=== PATIENT | female | born 1970 | race Caucasian/White ===

== ENCOUNTER → 2023-09-21 | Outpatient (CLI) | payer BC, SELFPAY ==
[2023-09-21 12:52] LABS: Absolute Lymphocyte Count 1.98 X10^3/uL (0.83-4.51); Absolute Neutrophil Count 4.5 X10^3/uL (2.0-7.7); Basophil# 0.09 X10^3/uL; Basophil% 1.2 % (0-1); Eosinophil# 0.19 X10^3/uL; Eosinophils% 2.6 % (0-5); Hematocrit 42.4 % (37-47); Hemoglobin 13.5 g/dL (12.0-15.0); Lymphocyte # 1.98 X10^3/ul (0.83-4.51); Lymphocyte % 27.4 % (19-41); Mean Corp Hgb Conc 31.8 g/dL (32-36); Mean Corpuscular Hgb 29.4 pg (27.0-32.0); Mean Corpuscular Volume 92.4 fL (81-99); Mean Platelet Vol. 9.8 fl (6.2-12.0); Monocyte# 0.48 X10^3/uL; Monocyte% 6.6 % (0-10); NRBC Flagged by Analyzer 0 % (0-5); Neutrophil # 4.46 X10^3/uL (2.7-7.7); Neutrophil % 61.8 % (47-70); Platelet Count 377 K/mm3 (150-450); RBC Distribution Width CV 12.4 % (11.6-14.6); RBC Distribution Width SD 42.3 fl (35.1-43.9); Red Blood Count 4.59 M/mm3 (4.2-5.4); White Blood Count 7.2 K/mm3 (4.4-11.0)
[2023-09-21 13:26] LABS: AST(SGOT) 15 U/L (15-37); Alanine Aminotransfer ALT/SGPT 28 U/L (13-56); Albumin, Serum 3.9 g/dL (3.2-5.0); Alkaline Phosphatase 103 U/L (45-117); Anion Gap 1 (5-15); BUN 11 mg/dL (7-18); BUN/Creat Ratio 14.2 RATIO (10-20); Calcium,Total 9.6 mg/dL (8.5-10.1); Chloride 105 mmol/L (98-107); Cholesterol 193 mg/dL (200); Creatinine, Serum 0.77 mg/dL (0.55-1.02); EST Glomerular Filtration Rate 84 mL/min (>60); Est Glom Filt Rate - Afr Amer 101 mL/min (>60); Globulin 3.9 g/dL (2.2-4.2); Glucose 85 mg/dL (74-106); High Density Lipoprotein 84 mg/dL; Potassium 4.1 mmol/L (3.5-5.1); Protein, Total 7.8 g/dL (6.4-8.2); Sodium Level 136 mmol/L (136-145); Triglycerides 251 mg/dL; Very Low Density Lipoprotein 50 mg/dL (5-40)
== END | disposition home or self-care (01) ==
PROVIDERS: PCP Internal Medicine; Referring Provider Internal Medicine; Visit Provider Internal Medicine
DX: Z00.00 Encounter for general adult medical examination without abnormal findings (principal)
CPT/HCPCS: 36415; 80053; 80061; 85025

== ENCOUNTER 2024-05-06 13:18 | Emergency (ER) | payer BC, SELFPAY ==
[2024-05-06 13:18] VITALS: BP 131/87; PULSE 88; RESP 16; TEMP 36.2; O2SAT 96; BMI 28.5
--- NOTE | 2024-05-06 16:12 | EX.ED.UPPERE ---
HPI History of Present Illness HPI Narrative: Left small finger laceration while doing yard work. Occurred about 3 hours ago. Unsure of last tetanus. [id number]. Chief Complaint: Laceration Informant: patient Occured/Mechanism Mechanism/Context: Yes injury Onset/Context/Timing Onset: Today and Hours Context: Sudden Onset Timing: Continuous Quality of Pain: Sharp Current Severity: Mild Maximum Severity: Mild Associated Symptoms Associated Symptoms: Negative for Weakness or Loss of Funtion Narrative Narrative: 54-year-old female doing yard work including cut her left small finger on the distal ulnar side with Hand-held nitza. Unsure of her last tetanus shot. Tetanus Immunization: Unknown Prior similar symptoms: No Recent Illness/Hospitalization: No PFSH PFSH Medical History Anxiety and depression Preventative health care GERD (gastroesophageal reflux disease) Anxiety Depression Cataract Breast lump Bulging disc Home Medications ?Medication ?Instructions ?Recorded ?Last Taken ?Type calcium carbonate (Tums) 200 mg PO BID PRN 09/21/23 Unknown History calcium polycarbophil 625 mg 1,250 mg PO DAILY 09/21/23 Unknown History tablet (FiberCon) multivitamin 1 tab PO DAILY 09/21/23 Unknown History pantoprazole 40 mg tablet,delayed mg PO 09/21/23 Unknown History release citalopram 20 mg tablet 20 mg PO DAILY #90 tabs 02/17/24 Unknown Rx citalopram 10 mg tablet 10 mg PO DAILY #90 tabs 02/22/24 Unknown Rx Allergy/AdvReac Type Severity Reaction Status Date / Time phenylpropanolamine AdvReac Mild insomnia Verified 05/06/24 13:19 Family History Mother Asthma Arthritis Diabetes Hypertension Hyperlipemia Father Cancer esophageal Aunt Breast cancer Sister Breast cancer Grandmother Breast cancer Surgical History Hx of tonsillectomy History of bladder surgery Social History adopted: No household members: spouse and children current occupational status: unemployed pets and animals: Yes (3) pets and animals: dog(s) Smoking Status: Never smoker alcohol intake: current alcohol intake frequency: holidays/special occasions only substance use type: does not use caffeine: Yes (3-4) Type: coffee frequency: 1-2 times per week mary/yazidism: Christianity seatbelt use: always do you feel safe at home: Yes ROS ROS ED ROS Narrative Denies recent illness. Constitutional Constitutional ED: Denies fever(s) Eyes Eyes: Denies blurry vision ENT ENT ED: Denies ear pain Respiratory/Chest Respiratory/Chest: Denies cough Gastrointestinal Gastrointestinal: Denies abdominal pain Genitourinary Genitourinary ED: Denies dysuria Musculoskeletal Musculoskeletal: Denies back pain Integumentary Denies abscess Neurologic Neurologic: Denies headache(s) Psychiatric Psychiatric: Denies anxiety Endocrine Endocrinology: Denies cold intolerance Hematologic/Lymphatic Hematologic/Lymphatic: Denies easy bleeding Allergic/Immunologic Allergic/Immunologic ED: Denies mouth swelling EXAM Physical Exam Narrative Exam Narrative: Well-appearing 54-year-old female. Vital signs stable afebrile. H EENT exam unremarkable. Lungs clear. Heart regular rate rhythm. Moving all 4 extremities. Neurovascular intact. Left hand small finger ulnar side distal and she has a laceration approximately 1 to 2 cm. Finger neurovascular intact with full range of motion. No foreign body or infection. Mild oozing of blood. Const Vital Signs: 05/06/24 13:18 Temperature 97.2 F L Temperature Source Temporal Pulse Rate 88 Respiratory Rate 16 Blood Pressure 131/87 H Blood Pressure Mean 101 Pulse Ox 96 Oxygen Delivery Method Room Air Positive well nourished and well developed; Negative for cachectic, contractures or unkempt General Appearance ED: well developed and NAD; Negative for unkempt, cachectic, contractures, cyanotic or diaphoretic Nutritional Appearance: Negative for cachectic HEENT Reports moist mucous membranes normocephalic and atraumatic; Negative for trauma or tenderness Eyes PERRL and EOMs intact bilaterally General Eye ED: Negative for other Neck full ROM and supple General: Negative for tenderness Chest Wall inspection of chest normal and palpation of chest normal Resp normal respiratory effort and clear to auscultation bilaterally Effort and Inspection: Negative for pain with movement Auscultation: Negative for rales, rhonchi or wheezes Cardio regular rate, regular rhythm, S1 normal heart sound, S2 normal heart sound and no murmurs GI non-tender, non-distended and no masses Back/Spine no CVA tenderness Extremity normal to inspection and full ROM Extremity Narrative: Sepsis left small finger ulnar side laceration. Proxy 1 to 2 cm. Mild oozing of blood. Neurovascular intact. Full range of motion. No foreign body. No infection. Neuro oriented x3, CN's II-XII intact bilaterally, moves all extremities, no focal motor deficits and no sensory deficits noted Sensorium / Orientation: alert, oriented to person, oriented to place and oriented to time; Negative for orientation impaired Motor Exam: strength 5/5 throughout Psych mental status grossly normal Appearance: Negative for unkempt Skin Lesions: no lesions Rashes: no rashes Trauma: laceration MDM MDM MDM Narrative Medical decision making narrative: Left small finger laceration. Clean. Dermabond. Steri-Strip. Dressed and DC'd. Tetanus updated. Procedures Lacerations Left small finger laceration repair:: Length: 0.5 in Depth: Sub Q Shape: Linear Comment: Dermabond repair. 1-1/2 to 2 cm. Steri-Strip. Dressed. Discharge Plan Triage Chief Complaint: Laceration ED Provider: Gerald Freire Dx/Rx/DC Orders Clinical Impression: Finger laceration Instructions: ED Laceration, Skin Adhesive Prescriptions: No Action pantoprazole 40 mg tablet,delayed release (DR/EC) PO Patient Comments: take 1 tablet by mouth twice a day for 8 WEEKS then DECREASE to 1... (REFER TO PRESCRIPTION NOTES). calcium polycarbophil [FiberCon] 625 mg tablet 1,250 mg PO DAILY multivitamin Tablet 1 tab PO DAILY calcium carbonate [Tums] 200 mg calcium (500 mg) tablet,chewable 200 mg PO BID PRN citalopram 20 mg tablet 20 mg PO DAILY Qty: 90 0RF citalopram 10 mg tablet 10 mg PO DAILY Qty: 90 1RF Rx Instructions: Take with 20 mg for a total daily dose of 30 mg daily Primary Care Provider: Jeremie Mari Referrals: Jeremie Mari MD [Primary Care Provider] - As Needed Activity Restrictions/Additional Instructions: Keep it dry and clean. If the dressing stays dry and clean take it off in 4 to 5 days. If the Steri-Strips do not fall off you can take them off in 7 to 10 days. Watch for any signs of infection. Your tetanus was updated you are good for about 10 years. Print Language: [place] Disposition Disposition: Home, Self Care
[2024-05-06] MEDS: Diphth,Pertuss(Acell),Tet Vac 0.5 ML Vial IM (16:22)
== END 2024-05-06 16:38 | disposition home or self-care (01) ==
LOC: ED 16:29
PROVIDERS: Emergency Provider Emergency Medicine; PCP Internal Medicine; Visit Provider Emergency Medicine
DX: S61.211A Laceration without foreign body of left index finger without damage to nail, initial encounter (principal); W27.1XXA Contact with garden tool, initial encounter; Y93.H2 Activity, gardening and landscaping; Z23 Encounter for immunization
CPT/HCPCS: 12001; 90715; 99282

== ENCOUNTER → 2024-09-14 | Outpatient (CLI) | payer BC, SELFPAY ==
[2024-09-14 07:47] LABS: Absolute Lymphocyte Count 2.15 X10^3/uL (0.83-4.51); Absolute Neutrophil Count 4.9 X10^3/uL (2.0-7.7); Basophil# 0.11 X10^3/uL; Basophil% 1.4 % (0-1); Eosinophils% 3.7 % (0-5); Hematocrit 40.6 % (37-47); Hemoglobin 13.5 g/dL (12.0-15.0); Lymphocyte # 2.15 X10^3/ul (0.83-4.51); Lymphocyte % 26.8 % (19-41); Mean Corp Hgb Conc 33.3 g/dL (32-36); Mean Corpuscular Hgb 29.9 pg (27.0-32.0); Mean Corpuscular Volume 89.8 fL (81-99); Mean Platelet Vol. 9.3 fl (6.2-12.0); Monocyte# 0.54 X10^3/uL; Monocyte% 6.7 % (0-10); NRBC Flagged by Analyzer 0 % (0-5); Neutrophil # 4.88 X10^3/uL (2.7-7.7); Neutrophil % 60.8 % (47-70); Platelet Count 359 K/mm3 (150-450); RBC Distribution Width CV 12.5 % (11.6-14.6); RBC Distribution Width SD 41.2 fl (35.1-43.9); Red Blood Count 4.52 M/mm3 (4.2-5.4)
[2024-09-14 08:39] LABS: ALB/GLOB Ratio 0.9 RATIO (0.9-2.4); AST(SGOT) 20 U/L (15-37); Alanine Aminotransfer ALT/SGPT 24 U/L (13-56); Albumin, Serum 3.6 g/dL (3.2-5.0); Alkaline Phosphatase 106 U/L (45-117); Anion Gap 5 (5-15); BUN 10 mg/dL (7-18); BUN/Creat Ratio 13.5 RATIO (10-20); Calcium,Total 9.9 mg/dL (8.5-10.1); Chloride 105 mmol/L (98-107); Cholesterol 199 mg/dL (200); Creatinine, Serum 0.74 mg/dL (0.55-1.02); EST Glomerular Filtration Rate 87 mL/min (>60); Est Glom Filt Rate - Afr Amer 106 mL/min (>60); Globulin 3.8 g/dL (2.2-4.2); Glucose 94 mg/dL (74-106); High Density Lipoprotein 68 mg/dL; Potassium 4.2 mmol/L (3.5-5.1); Protein, Total 7.4 g/dL (6.4-8.2); Sodium Level 138 mmol/L (136-145); Triglycerides 161 mg/dL; Very Low Density Lipoprotein 32 mg/dL (5-40)
== END | disposition home or self-care (01) ==
LOC: LAB 07:15
PROVIDERS: PCP Internal Medicine; Referring Provider Internal Medicine; Visit Provider Internal Medicine
DX: Z00.00 Encounter for general adult medical examination without abnormal findings (principal)
CPT/HCPCS: 36415; 80053; 80061; 85025

== ENCOUNTER → 2024-10-02 | Outpatient (CLI) | payer BC, SELFPAY ==
--- NOTE | 2024-10-02 15:54 | BI_ITS ---
PROCEDURE: SCRN MAMM (CAD)W/JANE BILAT REASON FOR EXAM: F, Age 54 y/o, sister with breast cancer. Aunt with breast cancer. TECHNIQUE: Bilateral screening digital breast tomosynthesis with 2D and 3D images. Computer aided detection. COMPARISON: Prior exam(s) dating back to March 31, 2023.. FINDINGS: The breasts are heterogeneously dense which may obscure small masses. Stable 6.8 mm well-defined nodule in the axillary region of the left breast suggestive of a benign lymph node. No suspicious masses, areas of developing architectural distortion, or suspicious calcifications. BI/SCRN MAMM (CAD)W/JANE BILAT IMPRESSION: BI-RADS 2: BENIGN. RECOMMEND ANNUAL MAMMOGRAPHIC SCREENING. Follow-up code: Routine Follow-up The patient will be notified of the results by letter. Reading Location: [id number]
== END | disposition home or self-care (01) ==
PROVIDERS: PCP Internal Medicine; Referring Provider Internal Medicine; Visit Provider Internal Medicine
DX: Z12.31 Encounter for screening mammogram for malignant neoplasm of breast (principal)
CPT/HCPCS: 77063; 77067

== ENCOUNTER → 2024-12-29 | Outpatient (CLI) | payer BC, SELFPAY ==
--- NOTE | 2024-12-29 14:45 | MRI_ITS ---
PROCEDURE: LOWER EXT/NO JT/W/O 12/29/2024 REASON FOR EXAM: RIGHT FOOT PAIN Pain greatest in the ball of foot and adjacent to the 2nd digit. TECHNIQUE: MRI of the right foot lower Extremity. Multiplanar and multisequence images were obtained without IV contrast administration. COMPARISON: COMPARISON : None FINDINGS: Bone Marrow: No acute fracture or osseous contusion. Subchondral cysts within the distal 1st metatarsal. Mild multifocal osteoarthritis, greatest at 1st metatarsophalangeal joint Effusion: No joint effusion seen. Soft Tissues: Mild subcutaneous edema adjacent to the 2nd and 3rd metatarsophalangeal joint and proximal 2nd digit. No fluid collection. Ligaments and Tendons: Flexor and extensor tendons appear intact. Lisfranc ligament is intact. Musculature: Visualized musculature appears normal MRI/Lower Ext/No Jt/w/o IMPRESSION: 1. Nonspecific subcutaneous edema adjacent to the 2nd and 3rd metatarsophalang eal joints and proximal 2nd digit. No fluid collection. 2. 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 3. No acute fracture or osseous contusion. Reading [facility]
== END | disposition home or self-care (01) ==
PROVIDERS: PCP Internal Medicine; Referring Provider Podiatrist; Visit Provider Podiatrist
DX: M77.51 Other enthesopathy of right foot and ankle (principal)
CPT/HCPCS: 73718